=== PATIENT | female | born 1970 | race Caucasian/White ===

== ENCOUNTER → 2018-04-24 15:15 | Outpatient (CLI) | payer OTHER, SELFPAY ==
--- NOTE | 2018-04-24 15:24 | XR_ITS ---
XR chest 2V HISTORY: ITS.REASON: COUGH ORDERING PHYSICIAN: Trevor Barkley MD PATIENT AGE: 47 years COMPARISON: None FINDINGS: The cardiomediastinal silhouette and pulmonary vascularity are within normal limits. There is patchy density in the right upper lobe and in the right lower lobe consistent with right-sided pneumonia with minimal blunting of the right CP angle. The remaining lungs are clear.. No acute bony abnormalities. IMPRESSION: Right upper and right lower lobe pneumonia
== END ==
PROVIDERS: PCP Family Medicine; Visit Provider Family Medicine
DX: R05 Cough (principal)
CPT/HCPCS: 71046

== ENCOUNTER → 2018-05-08 10:47 | Outpatient (CLI) | payer OTHER, SELFPAY ==
--- NOTE | 2018-05-08 10:50 | XR_ITS ---
XR chest 2V HISTORY: Follow-up pneumonia ITS.REASON: PNEUMONIA ORDERING PHYSICIAN: Naomy Martin MD PATIENT AGE: 47 years COMPARISON: 04/24/2018 FINDINGS: The cardiomediastinal silhouette and pulmonary vascularity are within normal limits. Previously described infiltrate in the right lower lobe has shown improvement. There remains some blunting of the right costophrenic sulcus. There is some patchy density in the right upper lobe superior to the previously described abnormality and may represent some patchy infiltrate or pleural thickening. There is a new patchy density also noted in the left lower lobe which could be due to an area of infiltrate. No acute bony anomalies. IMPRESSION: There has been a mixed response with improvement in the right lower lobe airspace disease. There are areas of slight increased density now the right upper lobe and left lower lobe suggesting small bilateral areas of pneumonia. There is some minimal residual blunting of the right CP angle
== END ==
PROVIDERS: PCP Emergency Medicine; Visit Provider Emergency Medicine
DX: J18.1 Lobar pneumonia, unspecified organism (principal)
CPT/HCPCS: 71046

== ENCOUNTER → 2018-06-05 15:36 | Outpatient (CLI) | payer OTHER, SELFPAY ==
--- NOTE | 2018-06-05 15:42 | CT_ITS ---
CT chest wo con HISTORY: Pneumonia with persistent cough, abnormal chest x-ray ITS.REASON: ABNORMAL CXR ORDERING PHYSICIAN: Naomy Martin MD PATIENT AGE: 47 years COMPARISON: 05/08/2018 Technique: Axial images obtained following the administration of 75 mL of Optiray 350 . Sagittal, and coronal reformatted images are also generated and reviewed. All CT scans at the facility use one or more dose reduction, viz: automated exposure control, ma/kV adjustment per patient size (including targeted exams where dose is matched to indication, i.e. head), or iterative reconstruction technique. FINDINGS: No mediastinal or hilar mass or adenopathy is evident. There is slight increased density within the anterior mediastinum likely related to residual thymic tissue. There is mild subpleural thickening in the right apex and right upper lobe posteriorly. There is a peripherally opacified bronchus in the right upper lobe laterally series 3 image 32 along with some small nodular opacities in this region which may be inflammatory or infectious with tree-in-bud pattern. 4 mm noncalcified nodule right lower lobe in the superior segment posteriorly and 4 mm noncalcified nodule right upper lobe at the apex. There is mild thickening of the major fissure on the right superiorly and laterally. Patchy infiltrate with bronchial thickening is present in the right middle lobe medially and laterally. Bronchial thickening with bronchiectasis noted within the lingula. There is consolidation in the left lower lobe medially with some associated bronchial thickening and a few small scattered nodular opacities in the left lower lobe. A 4 mm noncalcified nodule left upper lobe and there are scattered small nodular opacities in the left lower lobe at 4 mm or lass. No effusions are evident. There is a small lucency involving the superior posterior aspect of the ascending vertebral body nonspecific. Upper abdominal images are unremarkable. IMPRESSION: 1. There are scattered areas of bronchial thickening with tree-in-bud pattern consistent with bilateral pneumonia. Bronchiectasis is present within the lingula. The consolidation is most extensive in the left lower lobe posteriorly and medially. Bronchial impaction/plugging suspected in the right upper lobe laterally and in the right middle lobe inferiorly and laterally. 2. There are small bilateral pulmonary nodules in both lungs which are 4 mm or less and may be inflammatory or infectious. Continued follow-up suggested to confirm resolution as neoplasm cannot totally be excluded
== END ==
PROVIDERS: PCP Emergency Medicine; Visit Provider Emergency Medicine
DX: R91.8 Other nonspecific abnormal finding of lung field (principal)
CPT/HCPCS: 71250

== ENCOUNTER → 2018-06-27 10:30 | Outpatient (CLI) | payer OTHER, SELFPAY ==
--- NOTE | 2018-06-27 10:34 | MM_ITS ---
MM Dig screening mamm BI w/CAD CAD Screening COMPARISON: None, this is baseline INDICATION: There is no personal or family history of breast cancer TECHNIQUE: Standard CC and MLO images were obtained. R2 CAD reviewed. FINDINGS: There Is a markedly and diffusely dense parenchymal pattern definitely lessening the sensitivity of mammography. The findings are bilateral and symmetrical. There is no suspicious lesion and there are no suspicious microcalcifications. In view of the markedly dense parenchymal pattern strongly recommend monthly breast self-examination and if there are palpable lumps ultrasound surveillance of both breast should be considered. IMPRESSION: Markedly and diffusely dense parenchyma pattern with no definite suspicious lesion seen BI-RADS Category: 1 Negative RECOMMENDED FOLLOW-UP: 1YR - 1 YEAR FOLLOW-UP (A letter has been sent to the patient regarding results of the study.)
== END ==
PROVIDERS: PCP Emergency Medicine; Visit Provider Emergency Medicine
DX: Z12.31 Encounter for screening mammogram for malignant neoplasm of breast (principal)
CPT/HCPCS: 77067

== ENCOUNTER → 2018-12-19 10:37 | Outpatient (CLI) | payer OTHER, SELFPAY ==
--- NOTE | 2018-12-19 10:40 | CT_ITS ---
PROCEDURE: CT CHEST WO CON CLINICAL INDICATION: ABNORMAL CT SCAN, LUNG COMPARISON: CHESTWO CT chest wo con from 06/05/2018 TECHNIQUE: Axial images obtained with sagittal and coronal reformats. All CT scans at the facility use one or more dose reduction, viz: automated exposure control, ma/kV adjustment per patient size (including targeted exams where dose is matched to indication, i.e. head), or iterative reconstruction technique. FINDINGS: Airway structures are patent without pleural effusion or pneumothorax. The There has been some clearing of the opacities in the medial left lower lobe. There are still small nodular densities which are stable in the lung larry as described on the prior report although 1 of the nodular densities with hazy margins in the left lower lobe is smaller. There are some persistent tree-in-bud peripheral densities in the base of the anterior segment of the right upper lobe and lateral right upper lobe associated with stable bronchiectasis. There is also some greater prominence of the bronchial wall in the area of bronchiectasis along the base of the anterior segment right upper lobe. There is no new abnormal adenopathy. Heart size is normal without pericardial effusion. Visualized upper abdominal structures are unremarkable. IMPRESSION: There has been some interval improvement with clearing of consolidation/atelectasis from the left lower lobe. Bronchiectasis is still present and stable except there could be some increased peribronchial infiltrate or bronchial wall thickening involving the anterior segment right upper lobe. Also the tree-in-bud densities in the lateral right upper lobe and the anterior segment right upper lobe are stable. This persistence of the findings could occur with recurrence aspiration or perhaps opportunistic infection. Dictated by: Brenton Bailon 12/19/2018 11:50 Electronically signed by Brenton Bailon in [place] 12/19/2018 11:50
== END ==
PROVIDERS: PCP Emergency Medicine; Visit Provider Emergency Medicine
DX: R91.8 Other nonspecific abnormal finding of lung field (principal)
CPT/HCPCS: 71250

== ENCOUNTER → 2019-01-19 10:27 | Outpatient (CLI) | payer OTHER, SELFPAY ==
[2019-01-19 11:10] VITALS: PULSE 83; PULSE 88
[2019-01-19 12:52] LABS: Basophils # 0.1 K/mm3 (0-0.2); Basophils % 0.9 % (0.1-2.0); Eosinophils # 0.1 K/mm3 (0.0-0.4); Hematocrit 40.7 % (37.0-47.0); Hemoglobin 12.6 g/dL (12.2-16.2); Lymphocytes # 1.4 K/mm3 (0.7-4.5); Lymphocytes % 27.5 % (10-50); Mean Corpuscular HGB Conc 31.1 g/dL (31.8-35.4); Mean Corpuscular Hemoglobin 28.2 pg (27.0-31.2); Mean Corpuscular Volume 90.7 fl (81-99); Mean Platelet Volume 7.3 fl (7.4-10.4); Monocytes # 0.2 K/mm3 (0.1-1.0); Neutrophils # 3.4 K/mm3 (1.8-7.8); Neutrophils % 66.6 % (37.0-80.0); Platelet Count 371 K/mm3 (142-424); Red Blood Count 4.49 M/mm3 (4.20-5.40); Red Cell Distribution Width 13.2 % (11.5-17.5); White Blood Count 5.2 K/mm3 (4.8-10.8)
[2019-01-19 15:10] LABS: Alanine Aminotransferase 17 U/L (12-78); Albumin Level 3.6 gm/dL (3.4-5.0); Albumin/Globulin Ratio 0.9 (1.1-1.8); Alkaline Phosphatase 75 U/L (46-116); Aspartate Amino Transferase 12 U/L (15-37); Blood Urea Nitrogen 15 mg/dL (7-18); C-Reactive Protein 0.3 mg/dL (0.0-0.9); Calcium 9.2 mg/dL (8.5-10.1); Carbon Dioxide 28 mmol/L (21.0-32.0); Chloride 101 mmol/L (98-107); Creatinine,Serum 0.74 mg/dL (0.55-1.02); Estimated Glomerular Filt Rate 84 ml/min (>60); GFR (African American) 102 ML/MIN (>60); Globulin 4.2 gm/dl (1.3-3.2); Glucose 93 mg/dL (74-106); Sodium 139 mmol/L (136-145); Total Protein,Serum 7.8 gm/dL (6.4-8.2)
[2019-01-20 11:29] LABS: Immunoglobulin A, Qn 245 mg/dL (87-352); RA Latex Turbid. 10.2 IU/mL (0.0-13.9)
[2019-01-20 16:10] LABS: IgG, Subclass 1 938 mg/dL (248-810); IgG, Subclass 2 639 mg/dL (130-555); IgG, Subclass 3 96 mg/dL (15-102); Immunoglobulin G, Qn 1809 mg/dL (700-1600)
[2019-01-21 08:04] LABS: IgG, Subclass 4 41 mg/dL (2-96); Immunoglobulin M, Qn 259 mg/dL (26-217)
[2019-01-21 08:14] LABS: Cytoplasmic (C-ANCA) <1:20 titer (Neg:<1:20)
[2019-01-22 11:05] LABS: Antinuclear Antibodies, IFA Positive (.); Perinuclear (P-ANCA) <1:20 titer (Neg:<1:20)
[2019-01-22 12:03] LABS: QuantiFERON-TB Gold Plus Negative (Negative)
== END ==
PROVIDERS: PCP Emergency Medicine; Visit Provider Internal Medicine
DX: R06.02 Shortness of breath (principal); J18.9 Pneumonia, unspecified organism; J47.9 Bronchiectasis, uncomplicated; H10.409 Unspecified chronic conjunctivitis, unspecified eye
CPT/HCPCS: 36415; 80053; 82784; 82787; 85025; 86038; 86140; 86256; 86431; 86480; 94060; 94618; 94640; 94726; 94729

== ENCOUNTER → 2019-02-03 11:42 | Outpatient (CLI) | payer OTHER, SELFPAY ==
[2019-02-04 13:14] LABS: Sjogren's Anti-SS-A <0.2 AI (0.0-0.9); Sjogren's Anti-SS-B <0.2 AI (0.0-0.9)
[2019-02-05 06:11] LABS: Antiscleroderma-70 Antibodies <0.2 AI (0.0-0.9)
== END ==
PROVIDERS: Visit Provider Internal Medicine
DX: R76.8 Other specified abnormal immunological findings in serum (principal)
CPT/HCPCS: 36415; 86235

== ENCOUNTER → 2019-04-01 09:21 | Outpatient (CLI) | payer OTHER, SELFPAY ==
--- NOTE | 2019-04-01 09:27 | XR_ITS ---
PROCEDURE: XR CHEST 2V CLINICAL HISTORY: BRONCHIECTASIS, MRSA PNEUMONIA COMPARISON: CXR2V XR chest 2V from 04/24/2018 CXR2V XR chest 2V from 05/08/2018 CT CHEST WO CON from 12/19/2018 XR CHEST 2V from 01/21/2019 FINDINGS: The cardiomediastinal silhouette and pulmonary vascularity are within normal limits. There is some hyperinflation. The previously noted pneumonia in the superior segment of the right lower lobe has improved. There is however persistent opacity within the lingula and may be related to persistent pneumonia and/or volume loss. This however has a somewhat nodular appearance on the PA view. Suggest following till clear. CT with contrast may be of further value if clinically desired. No acute bony abnormalities. IMPRESSION: 1. Improved right sided pneumonia. 2. Persistent lingular consolidation. Suggest following till clear Dictated by: John De Jesus MD 04/01/2019 09:49 Electronically signed by John De Jesus MD in [facility] 04/01/2019 09:49
== END ==
PROVIDERS: PCP Family Medicine; Visit Provider Internal Medicine
DX: J47.9 Bronchiectasis, uncomplicated (principal); J15.212 Pneumonia due to Methicillin resistant Staphylococcus aureus; R09.81 Nasal congestion
CPT/HCPCS: 71046

== ENCOUNTER → 2019-04-11 16:14 | Outpatient (CLI) | payer OTHER, SELFPAY | PROVIDERS: Visit Provider Internal Medicine | DX: J47.9 Bronchiectasis, uncomplicated (principal); J18.9 Pneumonia, unspecified organism; H10.409 Unspecified chronic conjunctivitis, unspecified eye | CPT/HCPCS: 87070; 87077; 87102; 87116; 87186; 87205; 87206 ==

== ENCOUNTER 2020-04-08 15:12 | Emergency (ER) | payer OTHER, SELFPAY ==
[2020-04-08 15:20] VITALS: BP 137/74; PULSE 66; RESP 20; TEMP 37.1; O2SAT 100
--- NOTE | 2020-04-08 15:38 | HMH.EDUTC ---
[facility] [place] Clinical Impression: Post-nasal drainage Disposition: Home, Self-Care Condition on Discharge: Good Instructions: Preventing the Spread of Coronavirus Discharge Instructions Prescriptions: predniSONE [Prednisone 20mg Tab] 20 mg PO BID 5 Days #10 tab Transmission Status: [id number] Montelukast Sodium [Singulair 10mg tablet] 10 mg PO PM #30 tab Transmission Status: [id number] Referrals: Trevor Barkley MD [Primary Care Provider] - Time of Disposition: 15:46 Medical Decision Making - Rodriguez Inquiry Pt receiving controlled substance: No - Lab Data Lab results reviewed: Yes: I reviewed the patient's lab results. [facility] [place] - General Stated complaint: sore throat Time Seen by Provider: 04/08/20 15:38 - History of Present Illness Provider Complaint: Sore throat, sinus congestion X 2 days. No fever. Mother has strep throat. No known exposure to COVID19. No vomiting or diarrhea. Onset (ago): day(s) (2) Relieving factors: none Exacerbating factors: none Treatments prior to arrival: none - Related Data Home Medications Medication Instructions Recorded Confirmed amitriptyline 25 mg tablet 25 mg PO DAILY PRN 04/01/19 04/23/19 Previous Rx's Medication Instructions Recorded Albuterol Sulfate [Albuterol HFA 1 - 2 puffs IH Q4-6H PRN #1 inh 03/17/19 Inhaler] predniSONE [Deltasone 10mg tablet] 10 mg PO BID 4 Days #8 tab 03/17/19 Doxycycline Monohydrate 100 mg PO Q12 7 Days #14 tab 04/16/19 [Doxycycline [place] 100mg Tab] predniSONE [Prednisone 5mg Tab 5 mg PO UD DOSE PK 5 Days #21 pack 04/16/19 Dose-Pack] Montelukast Sodium [Singulair 10mg 10 mg PO PM #30 tab 04/08/20 tablet] predniSONE [Prednisone 20mg 20 mg PO BID 5 Days #10 tab 04/08/20 Tab] Allergies Allergy/AdvReac Type Severity Reaction Status Date / Time amoxicillin Allergy Verified 04/23/19 13:12 cephalexin [From Keflex] Allergy Verified 04/23/19 13:12 ciprofloxacin Allergy Verified 04/23/19 13:12 erythromycin base Allergy Verified 04/23/19 13:12 sulfamethoxazole Allergy Verified 04/23/19 13:12 [From Bactrim] trimethoprim Allergy Verified 04/23/19 13:12 [facility] History - Hepatitis A Screen Attestation statement:: This patient has been screened for Hepatitis A risk factors. I have reviewed the patient's past medical history: Yes Medical History: Reports:: Anxiety, Depression Denies:: Cancer, Diabetes Mellitus Type 1, Diabetes Mellitus Type 2, MRSA Other Medical History: Reports: Hypothyroidism, Other Comment: Hypoglycemic. Hx of Rowley's palsey. Repeated Pneumonias Laterality Cases: Bilateral: Other Other Surgeries: Yes: Cholecystectomy, Other Amputation: No Fractures: No Comment: GALLBLADDER, 2009. BRONCHOSCOPY---01/03 @ - Social History Smoking Status: Never smoker Alcohol Intake: never Alcohol Intake Frequency:: holidays/special occasions only Substance Use Type: denies use Occupational Status: unemployed, other Housing: house Household Members: family - Psychiatric History Pschychiatric History:: Reports:: Anxiety, Depression Family Hx:: Cancer, Hypertension, Diabetes, Stroke Comment: lung cancer, throat cancer in grandmother's Comment: patient delivered at [facility] on 03/12/17, male. 7lbs 0oz, some tearing during , had stitches ROS Obtained: Yes All systems reviewed & no additional complaints - Constitutional Constitutional: Denies fever(s) - ENT Ears, Nose, Mouth, and Throat: Reports post nasal drip, Reports sore throat Physical Exam - General General appearance: alert, in no apparent distress - Head Head exam: normocephalic - Eye Eye exam: Present: PERRL - ENT ENT exam: Present: TM's normal bilaterally - Expanded ENT Exam Throat exam: Present: other (PND) - Respiratory Respiratory exam: Present: normal lung sounds bilaterally - Cardiovascular Cardiovascular exam: Present: re
[2020-04-08 15:58] VITALS: BP 137/74; PULSE 66; RESP 20; TEMP 37.1; O2SAT 100
[2020-04-08 15:59] LABS: UTC Strep Screen (Rapid) Negative (Negative)
--- NOTE | 2020-04-08 20:44 | PC.NURSE ---
PATIENT NOTIFIED OF POSITIVE COVID TEST AT THIS TIME
== END 2020-04-08 16:00 | disposition home or self-care (01) ==
PROVIDERS: Emergency Provider Physician Assistant; PCP Family Medicine
DX: U07.1 COVID-19 (principal); F41.8 Other specified anxiety disorders; E03.9 Hypothyroidism, unspecified; Z88.1 Allergy status to other antibiotic agents; Z88.2 Allergy status to sulfonamides; Z79.899 Other long term (current) drug therapy
CPT/HCPCS: 87880; 99202; G0463; U0003

== ENCOUNTER → 2020-05-16 17:04 | Outpatient (CLI) | payer OTHER, SELFPAY ==
[2020-05-16 18:07] LABS: Uric Acid 3.2 mg/dl (2.5-6.2)
[2020-05-16 18:09] LABS: Erythrocyte Sedimentation Rate 9 mm/hr (0-20)
[2020-05-16 18:14] LABS: C-Reactive Protein 0.5 mg/L (0-4)
[2020-05-18 11:16] LABS: Immunoglobulin A, Qn 199 mg/dL (87-352); RA Latex Turbid. <10.0 IU/mL (0.0-13.9)
[2020-05-18 14:58] LABS: Alpha-1-Antitrypsin 143 mg/dL (101-187)
[2020-05-18 15:10] LABS: Sjogren's Anti-SS-A <0.2 AI (0.0-0.9); Sjogren's Anti-SS-B <0.2 AI (0.0-0.9)
[2020-05-18 16:55] LABS: Cytoplasmic (C-ANCA) <1:20 titer (Neg:<1:20); IgG, Subclass 1 786 mg/dL (248-810); IgG, Subclass 2 502 mg/dL (130-555); IgG, Subclass 3 77 mg/dL (15-102); IgG, Subclass 4 41 mg/dL (2-96); Immunoglobulin G, Qn 1581 mg/dL (586-1602)
[2020-05-18 18:16] LABS: Anti-DNA (DS) Ab Qn <1 IU/mL (0-9); Perinuclear (P-ANCA) <1:20 titer (Neg:<1:20)
[2020-05-19 15:16] LABS: Antinuclear Antibodies, IFA Negative (.)
[2020-05-20 05:28] LABS: Anti-Cyclic Citrullinated Pept 9 units (0-19)
[2020-05-21 19:21] LABS: Immunoglobulin E, Total 12 IU/mL (6-495)
[2020-05-21 21:18] LABS: M003-IgE Aspergillus fumigatus <0.10 kU/L (Class 0)
[2020-05-21 22:29] LABS: Antinuclear Antibodies (ANA) NEGATIVE
== END ==
PROVIDERS: Visit Provider Internal Medicine Pulmonary Disease
DX: R06.00 Dyspnea, unspecified (principal); J84.9 Interstitial pulmonary disease, unspecified; J41.1 Mucopurulent chronic bronchitis; R06.2 Wheezing; J98.4 Other disorders of lung; J44.9 Chronic obstructive pulmonary disease, unspecified
CPT/HCPCS: 36415; 82103; 82784; 82785; 82787; 84550; 85651; 86003; 86038; 86140; 86200; 86225; 86235; 86256; 86431; 87070; 87077; 87116; 87186; 87205; 87206

== ENCOUNTER 2020-07-01 11:53 | Emergency (ER) | payer OTHER, SELFPAY ==
[2020-07-01 12:05] VITALS: BP 122/68; PULSE 79; RESP 20; TEMP 37.2; O2SAT 100; BMI 19.2
--- NOTE | 2020-07-01 12:20 | HMH.EDUTC ---
[facility] – [place] Disposition Clinical Impression: Sinusitis Qualifiers: Sinusitis location: unspecified location Chronicity: unspecified Qualified Code(s): J32.9 - Chronic sinusitis, unspecified Disposition: Home, Self-Care Condition on Discharge: Good Instructions: Sinusitis, DI for Sinusitis Additional Instructions: ? Start antibiotic today. Be sure to complete entire prescription even if feeling better ? Monitor temp. Tylenol every 4 hours as needed and / or ibuprofen every 6 hours as needed ( As long as your primary care physician has told you that it ok to take both. For fever/aches/pains ER if no less than 101 despite Tylenol or Motrin ? Humidifier/vaporizer or hot steamy shower ? Inhaler every 4-6 hours as needed like we discussed. If unsure how to use it, ask pharmacist to demonstrate how. Should help open airways and improve cough, wheezing, and shortness of breath ? Mucinex during the day for your cough and cough suppressant only at night. Be sure to drink lots of water. Insurance may not cover a prescriptions for mucinex. Might be cheaper to get 400mg tablets and take 2 tablet in the morning, mid-day and evening with lots of water. *Start steroid today. Helps with inflammation therefore, cough and wheezing. Follow directions on the package. Reviewed side effects. Patient reports taking them before. Follow up IMMEDIATELY for new or worsening of symptoms OR no noticeable improvement over the next 48-72 hours. 911 immediately for any life threatening symptoms such as chest pain or difficulty breathing Prescriptions: Doxycycline Monohydrate [Doxycycline [place] 100mg Tab] 100 mg PO Q12 7 Days #14 tab Transmission Status: [id number] predniSONE [Prednisone 20mg Tab] 20 mg PO BID 5 Days #10 tab Transmission Status: [id number] Montelukast Sodium [Singulair 10mg tablet] 10 mg PO PM #30 tab Transmission Status: [id number] Referrals: Trevor Barkley MD [Primary Care Provider] - As needed Time of Disposition: 12:26 Medical Decision Making - Rodriguez Inquiry Pt receiving controlled substance: No Rodriguez was queried for this patient: No Vital Signs: 07/01/20 12:05 07/01/20 12:26 Temperature 98.9 F 98.9 F Temperature Source Oral Pulse Rate 79 Pulse Rate [Right Brachial] 79 Respiratory Rate 20 20 Blood Pressure 122/68 Blood Pressure [Right Arm] 122/68 Blood Pressure Mean [Right Arm] 86 Blood Pressure Source [Right Arm] Automatic Cuff Blood Pressure Position [Right Arm] Sitting 02 Sat by Pulse Oximetry 100 Oxygen Delivery Method Room Air [facility] [place] HPI - General Stated complaint: sinus drainage, congestion Time Seen by Provider: 07/01/20 12:20 Mode of Arrival: Ambulatory Source of Information: Patient Limitations: No Limitations Description of Symptoms (Recalled from Triage Doc. by RN): PATIENT C/O COUGH, SINUS CONGESTION, AND ALLERGIES X 1 WEEK HEENT Symptoms (Recalled from RN notes): Yes Resp Symptoms (Recalled from RN notes): No Skin Symptoms (Recalled from RN notes): No MS Symptoms (Recalled from RN notes): No Functional Status (Recalled from RN notes): WNL - History of Present Illness Provider Complaint: Patient states that she thought she was having allergy problems for the last couple of weeks but for the last week she has continued to get worse States that she has had a cough, sinus congestion and pressure and feels like it is trying to move into her chest State that today she was feeling worse so she came in to get checked - Related Data Home Medications Medication Instructions Recorded Confirmed Albuterol Sulfate [Albuterol 8.5 gm IH DAILY 07/01/20 07/01/20 Sulfate Hfa] Loratadine [Claritin 10mg 10 mg PO DAILY 07/01/20 07/01/20 Tablet] Previous Rx's Medication Instructions Recorded Doxycycline Monohydrate 100 mg PO Q12 7 Days #14 tab 07/01/20 [Doxycycline [place] 100mg Tab] Montelukast Sodium [Singulair 10mg 10
[2020-07-01 12:26] VITALS: BP 122/68; PULSE 79; RESP 20; TEMP 37.2; O2SAT 100
== END 2020-07-01 12:31 | disposition home or self-care (01) ==
PROVIDERS: Emergency Provider Nurse Practitioner; PCP Family Medicine
DX: J32.9 Chronic sinusitis, unspecified (principal); F41.8 Other specified anxiety disorders
CPT/HCPCS: 99202; G0463

== ENCOUNTER 2021-05-25 10:31 | Emergency (ER) | payer OTHER, SELFPAY ==
[2021-05-25 11:10] VITALS: BP 130/78; PULSE 89; RESP 19; TEMP 36.9; O2SAT 98; BMI 21.6
--- NOTE | 2021-05-25 12:02 | HMH.EDUTC ---
[facility] [place] Disposition Clinical Impression: Sinusitis Qualifiers: Sinusitis location: unspecified location Chronicity: unspecified Qualified Code(s): J32.9 - Chronic sinusitis, unspecified Acute bronchitis Qualifiers: Bronchitis organism: unspecified organism Qualified Code(s): J20.9 - Acute bronchitis, unspecified Disposition: Home, Self-Care Condition on Discharge: Good Instructions: Sinusitis, DI for Sinusitis, Acute Bronchitis Additional Instructions: ? Start antibiotic today. Be sure to complete entire prescription even if feeling better ? Monitor temp. Tylenol every 4 hours as needed and / or ibuprofen every 6 hours as needed ( As long as your primary care physician has told you that it ok to take both. For fever/aches/pains ER if no less than 101 despite Tylenol or Motrin ? Humidifier/vaporizer or hot steamy shower *Tessalon Perles will not cause drowsiness but use at bedtime to help stop cough so that you may get some rest. *Start steroid today. Helps with inflammation therefore, cough and wheezing. Follow directions on the package. Reviewed side effects. Patient reports taking them before. Follow up IMMEDIATELY for new or worsening of symptoms OR no noticeable improvement over the next 48-72 hours. 911 immediately for any life threatening symptoms such as chest pain or difficulty breathing Prescriptions: Benzonatate [Benzonatate 100mg cap] 100 mg PO Q8HP PRN #15 cap PRN Reason: Cough Transmission Status: [id number] Doxycycline Monohydrate [Doxycycline [place] 100mg Tab] 100 mg PO Q12 7 Days #14 tab Transmission Status: [id number] predniSONE [Prednisone 20mg Tab] 20 mg PO BID 5 Days #10 tab Transmission Status: [id number] Referrals: Trevor Barkley MD [Primary Care Provider] - As needed Time of Disposition: 12:11 Medical Decision Making - Rodriguez Inquiry Pt receiving controlled substance: No Rodriguez was queried for this patient: No Vital Signs: 05/25/21 11:10 Temperature 98.4 F Temperature Source Oral Pulse Rate [Right Brachial] 89 Respiratory Rate 19 Blood Pressure [Right Arm] 130/78 Blood Pressure Mean [Right Arm] 95 Blood Pressure Source [Right Arm] Automatic Cuff Blood Pressure Position [Right Arm] Sitting 02 Sat by Pulse Oximetry 98 Oxygen Delivery Method Room Air Orders (Tests/Meds): ORDERS Category Date Time Status Covid-19 Nasal PCR ([facility]) Routine Lab 05/25/21 11:26 Received [facility] [place] HPI - General Stated complaint: congestion,runny nose,cough Time Seen by Provider: 05/25/21 12:02 Mode of Arrival: Ambulatory Source of Information: Patient Limitations: No Limitations Description of Symptoms (Recalled from Triage Doc. by RN): PATIENT C/O COUGH AND CONGESTION. HEENT Symptoms (Recalled from RN notes): Yes Resp Symptoms (Recalled from RN notes): Yes Skin Symptoms (Recalled from RN notes): No MS Symptoms (Recalled from RN notes): No Functional Status (Recalled from RN notes): WNL - History of Present Illness Provider Complaint: Patient states that she has been having sinus pain and pressure along with cough and feeling like it is trying to move into her chest States that she gets this about this time every year States that she also wanted to get tested for COVID - Related Data Home Medications Medication Instructions Recorded Confirmed Loratadine [Claritin 10mg 10 mg PO DAILY 07/01/20 02/03/21 Tablet] Previous Rx's Medication Instructions Recorded Montelukast Sodium [Singulair 10mg 10 mg PO PM #30 tab 07/01/20 tablet] azelastine 205.5 mcg (0.15 %) 2 spray INTRANASAL HS #30 ml 08/05/20 nasal spray fluticasone propionate 50 1 spray INTRANASAL DAILY #16 g 08/05/20 mcg/actuation nasal spray,suspension levalbuterol HCl 0.63 mg/3 mL 0.63 mg INHALATION BID #90 ml 02/03/21 solution for nebulization sodium chloride 3.5 % for 3 ml INHALATION DAILY 90 Days #270 03/13/21 nebulization ml MDD
[2021-05-25 12:21] VITALS: BP 130/78; PULSE 89; RESP 19; TEMP 36.9; O2SAT 98
== END 2021-05-25 12:22 | disposition home or self-care (01) ==
PROVIDERS: Emergency Provider Nurse Practitioner; PCP Family Medicine
DX: J02.9 Acute pharyngitis, unspecified (principal); J32.9 Chronic sinusitis, unspecified; E03.9 Hypothyroidism, unspecified; F32.A Depression, unspecified; F41.9 Anxiety disorder, unspecified; Z79.51 Long term (current) use of inhaled steroids; Z79.52 Long term (current) use of systemic steroids; Z79.899 Other long term (current) drug therapy; Z88.1 Allergy status to other antibiotic agents; Z88.3 Allergy status to other anti-infective agents; Z88.2 Allergy status to sulfonamides; Z88.8 Allergy status to other drugs, medicaments and biological substances; Z82.49 Family history of ischemic heart disease and other diseases of the circulatory system; Z83.3 Family history of diabetes mellitus; Z80.1 Family history of malignant neoplasm of trachea, bronchus and lung; Z80.8 Family history of malignant neoplasm of other organs or systems
CPT/HCPCS: 99212; 99283; C9803; G0463; U0003; U0005

== ENCOUNTER 2022-05-29 18:45 | Emergency (ER) | payer OTHER, SELFPAY ==
[2022-05-29 19:20] VITALS: BP 117/71; PULSE 88; RESP 20; TEMP 37.5; O2SAT 97
[2022-05-29 19:34] LABS: UTC Strep Screen (Rapid) Negative (Negative)
--- NOTE | 2022-05-29 19:47 | EXP.UTC ---
Discharge Plan Disposition Patient Disposition: Home, Self-Care Condition: Good Prescriptions Prescriptions: No Action azelastine 205.5 mcg (0.15 %) spray,non-aerosol 2 spray INTRANASAL HS Qty: 30 3RF Rx Instructions: administer into each nostril fluticasone propionate [Children's Flonase Allergy Rlf] 50 mcg/actuation spray,suspension 1 spray INTRANASAL DAILY Qty: 16 3RF Rx Instructions: administer into each nostril levalbuterol HCl 0.63 mg/3 mL solution for nebulization 0.63 mg INHALATION BID Qty: 90 6RF Hyper-Shabbir 3.5 % solution for nebulization 3 ml INHALATION DAILY MDD 3 ml 90 Days Qty: 270 3RF Rx Instructions: 3 mL of 3% hypertonic saline nebulization once every day. This nebulization should be preceded by albuterol nebulization to avoid any bronchospasm. Paxlovid (EUA) 150 mg x 2- 100 mg tablet See Rx Instructions PO .COMPLEX Qty: 6 0RF Rx Instructions: take TWO 150 mg tablets of nirmatrelvir with ONE 100 mg tablet of ritonavir twice daily for 5 days PO loratadine 10 MG tablet 10 mg PO DAILY montelukast 10 MG tablet 10 mg PO PM Qty: 30 0RF prednisone 20 MG tablet 20 mg PO BID 5 Days Qty: 10 0RF doxycycline monohydrate 100 MG tablet 100 mg PO Q12 7 Days Qty: 14 0RF benzonatate 100 MG capsule 100 mg PO Q8HP PRN (Reason: Cough) Qty: 15 0RF Referrals Follow up/Referrals: Trevor Barkley MD [Primary Care Provider] - See instructions Activity Restrictions/Add. Instructions Additional Instructions/Restrictions: *Monitor Temp, Over the counter Motrin or Tylenol as directed/as needed Tylenol every 4 hours and Motrin every 6 hours (as long as your family doctor has told you that you can take it) for fever or pain. and straight to ER if unable to lower temp less than 101.0 after medication given *Warm salt water gargles may help to soothe the throat *Throat Lozenges? *Warm fluids like tea with honey may help to soothe the throat? *Sleep elevated *Humidifier/Vaporizer Your throat swab was sent for culture. Those results are typically sent to your primary care. Be sure to follow up in 2-3 days with your family doctor/primary care physician if no improvement so they can review those result and treat if necessary. If you don?t have a primary care doctor, I recommend you get one but in the mean time, you will have to return to a walk in clinic Follow up IMMEDIATELY for new or worsening symptoms or no Noticeable improvement over the next 48-72 hours. 911 for difficulty breathing or swallowing Clinical Impressions Clinical Impression: Acute viral pharyngitis Instructions Patient Instructions: Viral Pharyngitis, DI for Viral Pharyngitis Discharge ED Provider: Kerline Thomas [facility] [place] HPI General Stated complaint: Sore throat Congestion Runny nose Mode of Arrival: Ambulatory Source of Information: Patient Limitations: No Limitations Time Seen by Provider: 05/29/22 19:47 Description of Symptoms (Recalled from Triage Doc. by RN): PATIENT C/O SORE THROAT, CONGESTION, AND RUNNY NOSE SINCE LAST NIGHT HEENT Symptoms (Recalled from RN notes): Yes Resp Symptoms (Recalled from RN notes): No Skin Symptoms (Recalled from RN notes): No MS Symptoms (Recalled from RN notes): No Functional Status (Recalled from RN notes): WNL History of Present Illness Provider Complaint: Patient states that she started last night with nasal congestion, runny nose and sore throat States that today her throat was still hurting and she wasnt feeling any better so she came in to get checked Related Data Home Medications Medication Instructions Recorded Confirmed loratadine 10 mg tablet 10 mg PO DAILY Allergy symptoms 07/01/20 02/03/21 Previous Rx's Medication Instructions Recorded montelukast 10 mg tablet 10 mg PO PM #30 tabs 07/01/20 azelastine 205.5 mcg (0.15 %) 2 spray intranasal HS #30 mL 08/05/20 nasal spray fluticasone propionate
[2022-05-29 19:55] VITALS: BP 117/71; PULSE 88; RESP 20; TEMP 37.5; O2SAT 97
== END 2022-05-29 19:56 | disposition home or self-care (01) ==
PROVIDERS: Emergency Provider Nurse Practitioner; PCP Family Medicine
DX: J02.9 Acute pharyngitis, unspecified (principal); R09.81 Nasal congestion; B34.9 Viral infection, unspecified
CPT/HCPCS: 87880; 99212; 99214; G0463

== ENCOUNTER → 2022-06-22 14:27 | Outpatient (POV) | payer OTHER, SELFPAY | PROVIDERS: Visit Provider Dermatology | DX: Z00.00 Encounter for general adult medical examination without abnormal findings (principal) ==

== ENCOUNTER → 2022-07-24 10:05 | Outpatient (POV) | payer OTHER, SELFPAY | PROVIDERS: Visit Provider Dermatology | DX: Z00.00 Encounter for general adult medical examination without abnormal findings (principal) ==

== ENCOUNTER 2022-12-04 17:46 | Emergency (ER) | payer OTHER, SELFPAY ==
--- NOTE | 2022-12-04 18:23 | EXP.UTC ---
Discharge Plan Disposition Patient Disposition: Home, Self-Care Condition: Good Prescriptions Prescriptions: New doxycycline monohydrate [doxycycline monohydrate] 100 mg tablet 100 mg PO Q12 10 Days Qty: 20 0RF benzonatate [benzonatate] 100 mg capsule 100 mg PO TIDP PRN (Reason: Cough) Qty: 30 0RF methylprednisolone 4 mg Tablets,Dose Pack 4 mg PO DIRECTED Qty: 21 0RF No Action azelastine 205.5 mcg (0.15 %) spray,non-aerosol 2 spray INTRANASAL HS Qty: 30 3RF Rx Instructions: administer into each nostril fluticasone propionate [Children's Flonase Allergy Rlf] 50 mcg/actuation spray,suspension 1 spray INTRANASAL DAILY Qty: 16 3RF Rx Instructions: administer into each nostril levalbuterol HCl 0.63 mg/3 mL solution for nebulization 0.63 mg INHALATION BID Qty: 90 6RF Hyper-Shabbir 3.5 % solution for nebulization 3 ml INHALATION DAILY MDD 3 ml 90 Days Qty: 270 3RF Rx Instructions: 3 mL of 3% hypertonic saline nebulization once every day. This nebulization should be preceded by albuterol nebulization to avoid any bronchospasm. Paxlovid 150 mg x 2- 100 mg tablet See Rx Instructions PO .COMPLEX Qty: 6 0RF Rx Instructions: take TWO 150 mg tablets of nirmatrelvir with ONE 100 mg tablet of ritonavir twice daily for 5 days PO loratadine 10 MG tablet 10 mg PO DAILY montelukast 10 MG tablet 10 mg PO PM Qty: 30 0RF prednisone 20 MG tablet 20 mg PO BID 5 Days Qty: 10 0RF doxycycline monohydrate 100 MG tablet 100 mg PO Q12 7 Days Qty: 14 0RF benzonatate 100 MG capsule 100 mg PO Q8HP PRN (Reason: Cough) Qty: 15 0RF Referrals Follow up/Referrals: Trevor Barkley MD [Primary Care Provider] - See instructions Clinical Impressions Clinical Impression: Sinusitis, Acute viral syndrome Stand Alone Forms Stand Alone Forms: Work/School Release Instructions Patient Instructions: Sinusitis, DI for Sinusitis, DI for Viral Syndrome, Coronavirus Disease 2019, Preventing the Spread of Coronavirus Discharge Instructions Discharge ED Provider: Neymar Chong [facility] General Stated complaint: SUMNER, fever Time Seen by Provider: 12/04/22 18:22 History of Present Illness Provider Complaint: She states that for the past 3 days she has had worsening sinus congestion, sore throat and she has felt bad. Related Data Home Medications Medication Instructions Recorded Confirmed loratadine 10 mg tablet 10 mg PO DAILY Allergy symptoms 07/01/20 02/03/21 Previous Rx's Medication Instructions Recorded montelukast 10 mg tablet 10 mg PO PM #30 tabs 07/01/20 azelastine 205.5 mcg (0.15 %) 2 spray intranasal HS #30 mL 08/05/20 nasal spray fluticasone propionate 50 1 spray intranasal DAILY #16 grams 08/05/20 mcg/actuation nasal spray,suspension (Children's Flonase Allergy Relief) levalbuterol HCl 0.63 mg/3 mL 0.63 mg (3 mL) inhalation BID #90 02/03/21 solution for nebulization mL sodium chloride 3.5 % for 3 ml inhalation DAILY 90 days #270 03/13/21 nebulization (Hyper-Shabbir) mL benzonatate 100 mg capsule 100 mg PO Q8HP PRN Cough #15 caps 05/25/21 doxycycline monohydrate 100 mg 100 mg PO Q12 7 days #14 tabs 05/25/21 tablet prednisone 20 mg tablet 20 mg PO BID 5 days #10 tabs 05/25/21 nirmatrelvir 300 mg (150 mg See Rx Instructions PO .COMPLEX #6 07/27/21 x2)-ritonavir 100 mg tablet,dose tabs pack (Paxlovid) benzonatate 100 mg capsule 100 mg PO TIDP PRN Cough #30 caps 12/04/22 doxycycline monohydrate 100 mg 100 mg PO Q12 10 days #20 tabs 12/04/22 tablet methylprednisolone 4 mg tablets in 4 mg PO DIRECTED #21 tabs 12/04/22 a dose pack Allergies Allergy/AdvReac Type Severity Reaction Status Date / Time amoxicillin Allergy Verified 02/03/21 10:03 cephalexin [From Keflex] Allergy Verified 02/03/21 10:03 ciprofloxacin Allergy Verified 02/03/21 10:03 erythromycin base Allergy Verified 02/03/21 10:03 Sulfa (Sulfonamide Allergy
[2022-12-04 18:30] VITALS: BP 112/60; PULSE 84; RESP 18; TEMP 37.1; O2SAT 100
[2022-12-04 18:48] VITALS: BP 112/60; PULSE 84; RESP 16; TEMP 37.1; O2SAT 98
== END 2022-12-04 18:49 | disposition home or self-care (01) ==
PROVIDERS: Emergency Provider Nurse Practitioner Family; PCP Family Medicine
DX: J01.90 Acute sinusitis, unspecified (principal); R05.9 Cough, unspecified; B34.9 Viral infection, unspecified
CPT/HCPCS: 87635; 99212; 99214; G0463

== ENCOUNTER 2023-12-07 12:06 | Emergency (ER) | payer OTHER, SELFPAY ==
--- NOTE | 2023-12-07 12:36 | ED_ITS ---
Discharge Plan Disposition Patient Disposition: Home, Self-Care Condition: Good Prescriptions Prescriptions: New doxycycline hyclate 100 mg capsule 100 mg PO Q12 10 Days Qty: 20 0RF benzonatate 100 mg capsule 100 mg PO TIDP PRN (Reason: Cough) Qty: 30 0RF methylprednisolone 4 mg Tablets,Dose Pack 4 mg PO DIRECTED 6 Days Qty: 21 0RF Rx Instructions: Take 1 pack as directed for 6 days No Action levalbuterol HCl 0.63 mg/3 mL solution for nebulization 0.63 mg INHALATION BID Qty: 90 6RF fexofenadine [Lillian Allergy] 60 mg tablet 60 mg PO DAILY benzonatate 100 mg capsule 100 mg PO BID PRN (Reason: cough) Qty: 20 0RF Hyper-Shabbir 3.5 % solution for nebulization 3 ml INHALATION DAILY MDD 3 ml 90 Days Qty: 270 3RF Rx Instructions: 3 mL of 3% hypertonic saline nebulization once every day. This nebulization should be preceded by albuterol nebulization to avoid any bronchospasm. loratadine 10 mg tablet 10 mg PO DAILY PRN (Reason: Allergy symptoms) Referrals Follow up/Referrals: Trevor Barkley MD [Primary Care Provider] - See instructions Activity Restrictions/Add. Instructions Additional Instructions/Restrictions: Drink plenty of fluids. Take tylenol or ibuprofen for pain or fever. Take the medications as directed. Follow up with your regular doctor. GO TO THE ER FOR ANY WORSENING SYMPTOMS Clinical Impressions Clinical Impression: Sinus infection Instructions Patient Instructions: Sinusitis, DI for Sinusitis Print Language Print Language: Uzbek Discharge ED Provider: Neymar Chong [facility] General Stated complaint: sore throat, stuffy nose Time Seen by Provider: 12/07/23 12:34 History of Present Illness Provider Complaint: She states that for the past 3 days she has had worsening sinus congestion, fatigue and malaise. She denies any fever/chills/body aches. Related Data Home Medications ?Medication ?Instructions ?Recorded ?Confirmed fexofenadine 60 mg tablet (Lillian 60 mg PO DAILY 02/08/23 02/08/23 Allergy) loratadine 10 mg tablet 10 mg PO DAILY PRN Allergy symptoms 02/08/23 02/08/23 Previous Rx's ?Medication ?Instructions ?Recorded levalbuterol HCl 0.63 mg/3 mL 0.63 mg (3 mL) inhalation BID #90 02/03/21 solution for nebulization mL sodium chloride 3.5 % for 3 ml inhalation DAILY 90 days #270 03/13/21 nebulization (Hyper-Shabbir) mL benzonatate 100 mg capsule 100 mg PO BID PRN cough #20 caps 02/08/23 benzonatate 100 mg capsule 100 mg PO TIDP PRN Cough #30 caps 12/07/23 doxycycline hyclate 100 mg capsule 100 mg PO Q12 10 days #20 caps 12/07/23 methylprednisolone 4 mg tablets in 4 mg PO DIRECTED 6 days #21 tabs 12/07/23 a dose pack Allergies Allergy/AdvReac Type Severity Reaction Status Date / Time amoxicillin Allergy Verified 02/08/23 13:28 cephalexin [From Keflex] Allergy Verified 02/08/23 13:28 ciprofloxacin Allergy Verified 02/08/23 13:28 erythromycin base Allergy Verified 02/08/23 13:28 Sulfa (Sulfonamide Allergy Verified 02/08/23 13:28 Antibiotics) sulfamethoxazole Allergy Verified 02/08/23 13:28 [From Bactrim] trimethoprim Allergy Verified 02/08/23 13:28 [facility] Disclaimer: The information contained in this section may have been updated after the patient was seen, as this information can be updated by other users. Social History Smoking Status: Never smoker alcohol intake: never substance use type: denies use current occupational status: other Travel in the last 8 weeks: None household members: family housing: house ROS Obtained: Yes All systems reviewed & no additional complaints except as documented Constitutional Constitutional: Reports poor appetite Eyes Eyes: Reports system reviewed and no additional complaints, except as documented ENT Ears, Nose, Mouth, and Throat: Reports as per HPI Cardiovascular Cardiovascular: Reports system reviewed and no additional complaints, except as documented and Denies chest pain Respiratory Respiratory: Denies shortness of breath, Denies chest congestion, Reports cough, Denies stridor and Denies wheezing Gastrointestinal Gastrointestingal: Reports system reviewed and no additional complaints, except as documented; Denies abdominal pain, diarrhea or vomiting Musculoskeletal Musculoskeletal: Reports system reviewed and no additional complaints, except as documented and Denies arthralgias Integumentary/Breasts Skin/Breast: Reports system reviewed and no additional complaints, except as documented and Denies rash Neurologic Neurologic: Denies paresthesias Allergic/Immunologic Allergic/Immunologic: Denies wheezing Physical Exam General General appearance: alert and in no apparent distress Eye Eye exam: Present normal appearance, PERRL and EOMI ENT ENT exam: Present mucous membranes moist and normal external ear exam Expanded ENT Exam External ear exam: Present normal external inspection TM/Canal exam: Bilateral TM: erythema and bulging Nose exam: Absent sinus tenderness Nasal speculum exam: Bilateral: normal Mouth exam: Present normal external inspection; Absent drooling Teeth exam: Present normal inspection Throat exam: Present tonsillar erythema and tonsillomegaly Neck Neck exam: Present normal inspection, full ROM and trachea midline; Absent tenderness, lymphadenopathy or thyromegaly Chest Chest inspection: Present normal inspection and symmetric chest wall rise; Absent tenderness or rash Respiratory Respiratory exam: Present normal lung sounds bilaterally; Absent respiratory distress, wheezes, stridor or accessory muscle use Cardiovascular Cardiovascular exam: Present regular rate, normal rhythm and normal heart sounds Abdominal Exam Abdominal exam: Present soft; Absent distention, tenderness, guarding, rebound or rigidity Extremities Exam Extremities exam: Present normal inspection, full ROM and normal capillary refill; Absent tenderness or calf tenderness Back Exam Back exam: Present normal inspection and full ROM; Absent tenderness Neurological Exam Neurological exam: Present alert and oriented X3 Psychiatric Psychiatric exam: Present normal affect and normal mood Skin Skin exam: Present warm, dry, intact and normal color Lymphatic Lymphatic Findings: no adenopathy Medical Decision Making Medical Records Medical records reviewed: No I reviewed the patient's medical records. Screening: Per USPSTF and CDC recommendations, given the prevalence of disease in our region, it is our hospital?s policy to screen for HIV and viral Hepatitis for all patients aged 18 and over and those with ongoing risk factors. Rodriguez Inquiry Pt receiving controlled substance: No
[2023-12-07 12:51] VITALS: BP 96/86; PULSE 77; RESP 16; TEMP 36.7; O2SAT 100
[2023-12-07 12:51] LABS: UTC Strep Screen (Rapid) Negative (Negative)
[2023-12-07 13:16] VITALS: BP 96/86; PULSE 77; RESP 16; TEMP 36.7; O2SAT 100
== END 2023-12-07 13:18 | disposition home or self-care (01) ==
PROVIDERS: Emergency Provider Nurse Practitioner Family; PCP Family Medicine
DX: J01.90 Acute sinusitis, unspecified (principal); J02.9 Acute pharyngitis, unspecified; R09.81 Nasal congestion; R53.83 Other fatigue; R53.81 Other malaise
CPT/HCPCS: 87880; 99212; 99214; G0463

== ENCOUNTER 2024-02-25 15:52 | Outpatient (CLI) | payer OTHER, SELFPAY ==
[2024-02-25 18:12] LABS: Adenovirus,PCR Not Detected (NotDetected); Bordetella Pertussis Not Detected (NotDetected); Chlamydophila Pneumoniae, PCR Not Detected (NotDetected); Coronavirus 229E Not Detected (NotDetected); Coronavirus NL63 Not Detected (NotDetected); Coronavirus OC43 Not Detected (NotDetected); Coronovirus HKU1,PCR Not Detected (NotDetected); Human Metapneumovirus Not Detected (NotDetected); Influenza A, PCR Not Detected (NotDetected); Influenza AH1, 2009 Not Detected (NotDetected); Influenza AH1, PCR Not Detected (NotDetected); Influenza AH3,PCR Not Detected (NotDetected); Influenza B, PCR Not Detected (NotDetected); Mycoplasma Pneumoniae, PCR Not Detected (NotDetected); Parainfluenza 1, PCR Not Detected (NotDetected); Parainfluenza 2, PCR Not Detected (NotDetected); Parainfluenza 3, PCR Not Detected (NotDetected); Parainfluenza 4, PCR Not Detected (NotDetected); Respiratory Syncytial Virus Not Detected (NotDetected); Rhinovirus/Enterovirus Not Detected (NotDetected)
[2024-02-26 02:08] LABS: Coronavirus 19, PCR Detected (NotDetected)
== END 2024-02-25 23:59 | disposition home or self-care (01) ==
LOC: LAB.DROPOF 02-26 11:10
PROVIDERS: PCP Student in an Organized Health Care Education/Training Program; Visit Provider Student in an Organized Health Care Education/Training Program
DX: J02.9 Acute pharyngitis, unspecified (principal); R09.81 Nasal congestion
CPT/HCPCS: 87070; 87633

== ENCOUNTER 2024-02-27 17:49 | Emergency (ER) | payer OTHER, SELFPAY ==
[2024-02-27 17:51] VITALS: BP 138/88; PULSE 81; RESP 18; TEMP 36.7; O2SAT 100; BMI 20.5
--- NOTE | 2024-02-27 17:56 | ED_ITS ---
<Statement entered by Amari Feldman MD - 02/27/24 21:31> I was consulted by the WESLY, and we discussed the complexity of the problems being addressed. I approved the treatment and management plan for this patient's care in the emergency department, thus performing a substantive portion of the medical decision making. Amari Feldman MD, LYUBOV, FACEP Discharge Plan Disposition Patient Disposition: Home, Self-Care Condition: Good Prescriptions Prescriptions: New [id number]-[id number] [Bromfed DM] 2-30-10 mg/5 mL syrup 5 ml PO Q4H PRN (Reason: sinus symptoms) Qty: 118 0RF No Action methylprednisolone 4 mg tablets,dose pack See Rx Instructions PO PER PKG DIR Qty: 21 0RF Rx Instructions: PO PER PKG DIR Paxlovid 300 mg (150 mg x 2)-100 mg tablets,dose pack See Rx Instructions PO .COMPLEX Qty: 30 0RF Rx Instructions: take TWO 150 mg tablets of nirmatrelvir with ONE 100 mg tablet of ritonavir twice daily for 5 days PO Referrals Follow up/Referrals: Provider,Referral, [Primary Care Provider] - See instructions Activity Restrictions/Add. Instructions Additional Instructions/Restrictions: Continue taking Tylenol Motrin for constitutional symptoms. I recommended taking the Paxil bid that you were prescribed. I would not recommend the steroids. Follow-up with pulmonology next week as well. I have sent Bromfed into your pharmacy to help with the other symptoms. Follow-up with your PCP for no improvement change or worsening in your signs or symptoms or return to the ER as needed. Clinical Impressions Clinical Impression: COVID-19, Paresthesia Print Language Print Language: Amharic Discharge ED Provider: Amari Feldman General Adult HPI General Chief complaint: Neuro Symptoms/Deficit Stated complaint: Poss for Covid , tingling in lips Time Seen by Provider: 02/27/24 17:56 History of Present Illness HPI narrative: Patient presents for evaluation of facial paresthesias. Patient was diagnosed with COVID on Saturday. She was prescribed Paxil bid and prednisone. She has started the prednisone but has not started the Paxlovid. Patient states this afternoon she began having tingling of her upper lip and her nose. She however has no focal neurologic deficits, has no loss of motor or sensory. She does admit that she is anxious but does not recall being particularly breathless or short of air. Patient does have a history of bronchiectasis diagnosed by bronchoscopy in 2019 but does not know what pathogens if any were found. Related Data Previous Rx's ?Medication ?Instructions ?Recorded methylprednisolone 4 mg tablets in See Rx Instructions PO PER PKG DIR 02/25/24 a dose pack #21 tabs nirmatrelvir 300 mg (150 mg See Rx Instructions PO .COMPLEX 02/26/24 x2)-ritonavir 100 mg tablet,dose #30 tabs pack (Paxlovid) [id number]-dlabmprjzpzsydc-JS 5 ml PO Q4H PRN sinus symptoms 02/27/24 2 mg-30 mg-10 mg/5 mL oral syrup #118 mL (Bromfed DM) Allergies Allergy/AdvReac Type Severity Reaction Status Date / Time amoxicillin Allergy Verified 02/25/24 15:35 cephalexin (From Keflex) Allergy Verified 02/25/24 15:35 ciprofloxacin Allergy Verified 02/25/24 15:35 erythromycin base Allergy Verified 02/25/24 15:35 Sulfa (Sulfonamide Allergy Verified 02/25/24 15:35 Antibiotics) sulfamethoxazole (From Allergy Verified 02/25/24 15:35 Bactrim) trimethoprim Allergy Verified 02/25/24 15:35 PFSH PFSH Disclaimer: The information contained in this section may have been updated after the patient was seen, as this information can be updated by other users. Social History Smoking Status: Never smoker alcohol intake: never substance use type: denies use current occupational status: other Travel in the last 8 weeks: None household members: family housing: house Have you lived/traveled outside [place] in past 30 days?: No Contact w/someone who lives/traveled outside [place] past 30 days?: No Exposure to someone with infectious disease in past 14 days?: Yes Do you have a fever (greater than 100.4 F or 38 C)?: No Have you tested positive for COVID-19: Yes Exposed to someone with COVID-19 in past 14 days?: Yes Do you have a sore throat?: Yes Do you have a cough?: Yes Do you have any weakness?: No Do you have any diarrhea?: No Are you experiencing any unusual bleeding?: No Do you have any muscle aches/pain?: No Do you have any abdominal pain?: No Are you experiencing loss of taste or smell?: No Other Medical History Have you received the Flu Vaccine for this season: No Have you received the Pneumonia Vaccine: No ROS Obtained: Yes Systems reviewed as appropriate & no additional complaints except as documented Physical Exam General General appearance: alert and in no apparent distress Respiratory Respiratory exam: Present normal lung sounds bilaterally Cardiovascular Cardiovascular exam: Present regular rate Neurological Exam Neurological exam: Present alert and oriented X3 Medical Decision Making Medical Records Medical records reviewed: Yes I reviewed the patient's medical records. Screening: Per USPSTF and CDC recommendations, given the prevalence of disease in our region, it is our hospital?s policy to screen for HIV and viral Hepatitis for all patients aged 18 and over and those with ongoing risk factors. Rodriguez Inquiry Pt receiving controlled substance: No Vital Signs: 02/27/24 17:51 02/27/24 17:59 02/27/24 18:00 Temperature 98.1 F Temperature Source Oral Pulse Rate 73 75 Pulse Rate [Right] 81 Respiratory Rate 18 Blood Pressure 138/88 133/91 H Blood Pressure [Right Arm] 138/88 Blood Pressure Mean [Right Arm] 104 Blood Pressure Source 02 Sat by Pulse Oximetry 100 99 100 Oxygen Delivery Method 02/27/24 19:14 Temperature 98.1 F Temperature Source Oral Pulse Rate 76 Pulse Rate [Right] Respiratory Rate 17 Blood Pressure 114/56 L Blood Pressure [Right Arm] Blood Pressure Mean [Right Arm] Blood Pressure Source Automatic Cuff 02 Sat by Pulse Oximetry Oxygen Delivery Method Room Air Lab Data Lab results reviewed: Yes I reviewed the patient's lab results. Lab Results 02/27/24 18:09: VBG pH 7.36, VBG pCO2 48.0, VBG pO2 31.9, VBG HCO3 26.4, VBG Total CO2 27.9 H, VBG O2 Saturation 59.1, VBG Base Excess 1.0, VBG Lactic Acid 1.5 02/27/24 18:10: WBC 6.1, RBC 4.44, Hgb 13.0, Hct 39.9, MCV 89.9, MCH 29.3, MCHC 32.6, RDW 14.1, Plt Count 237, MPV 7.2 L, Neut % (Auto) 73.3, Lymph % (Auto) 18.3, Nicholas % (Auto) 7.6, Eos % (Auto) 0.3, Baso % (Auto) 0.5, Neut # (Auto) 4.4, Lymph # (Auto) 1.1, Nicholas # (Auto) 0.5, Eos # (Auto) 0.0, Baso # (Auto) 0.0, Sodium 140, Potassium 3.2 L, Chloride 105, Carbon Dioxide 31 H, Anion Gap 7.2, BUN 14, Creatinine 0.70, Estimated Creat Clear 84, Estimated GFR 88, Est GFR ( Amer) 107, Glucose 109 H, Calcium 9.3, Magnesium 2.2 02/27/24 18:10 02/27/24 18:10 Orders (Tests/Meds): ORDERS Category Date Time Status Chest XR 2 view (NOT portable) [XR chest 2V] Stat Exams 02/27/24 18:08 Completed BMP [Basic Metabolic Panel] Stat Lab 02/27/24 18:10 Completed CBC w/Auto Diff [Complete Blood Count Auto Diff] Stat Lab 02/27/24 18:10 Completed HIV (1&2) Antibody Rapid Stat Lab 02/27/24 18:10 Received Hep C Ab with Reflex to RNA Stat Lab 02/27/24 18:10 Received Magnesium Stat Lab 02/27/24 18:10 Completed VBG [Venous Blood Gas] Stat RT 02/27/24 18:09 Completed Medical Decision Narrative: In summary patient is a 53-year-old female who presents to the emergency department for evaluation of tingling of her upper lip and nose and being COVID- positive.. Patient is hemodynamically stable with a blood pressure 138/88 heart rate 81 respiratory rate is 18 with an O2 sat of 100% on room air upon arrival, afebrile. Physical exam is remarkable for clear breath sounds without increased work of breathing or adventitious sounds, patient's cranial nerves are intact grossly to exam, patient's NIH stroke score is 0, patient satting at 100% on room air.. Differential diagnosis includes facial paresthesia versus electrolyte derangement versus adverse medication reaction etc. Initial workup will be conducted with hematologic labs plain film chest x-ray. Initial interventions were considered however deferred until workup complete. Initial workup reviewed by me shows her hematologic labs are nonactionable including normal electrolytes and magnesium, and my informal interpretation of her plain film chest x-ray does not show any acute infiltrates or COVID-pneumonia. Upon repeat evaluation patient still had minimal tingling and had diminished significantly since arrival without any intervention.. Given this patient is appropriate for discharge with instructions to consider not continuing to take the steroids, definitely taking the Paxlovid as she has a history of bronchiectasis and strict return precautions. Patient also advised to follow-up with Dr. Martínez next week. Critical Care Critical Care Time Critical Care Time: No
[2024-02-27 17:59] VITALS: BP 138/88; PULSE 73; O2SAT 99
[2024-02-27 18:00] VITALS: BP 133/91; PULSE 75; O2SAT 100
--- NOTE | 2024-02-27 18:08 | XR_ITS ---
PROCEDURE INFORMATION: Exam: XR Chest Exam date and time: 02/27/2024 6:19 PM Age: 53 years old Clinical indication: Cough; Additional info: Covid-positive, paresthesias TECHNIQUE: Imaging protocol: Radiologic exam of the chest. Views: 2 views. COMPARISON: CR XR CHEST 2V 01/04/2019 09:28 FINDINGS: Lungs: There are scattered nodular pulmonary opacities throughout the lungs without significant change since 2019. There are new right upper lobe opacities of indeterminate significance. Pleural spaces: Unremarkable. No pleural effusion. No pneumothorax. Heart/Mediastinum: Unremarkable. No cardiomegaly. Bones/joints: Unremarkable. IMPRESSION: There are new right upper lobe opacities of indeterminate significance. Atypical infection could have this appearance.
[2024-02-27 18:21] LABS: Basophils % 0.5 % (0.1-2.0); Eosinophils % 0.3 % (0.1-12.0); Hematocrit 39.9 % (37.0-47.0); Lymphocytes # 1.1 K/mm3 (0.7-4.5); Lymphocytes % 18.3 % (10-50); Mean Corpuscular HGB Conc 32.6 g/dL (31.8-35.4); Mean Corpuscular Hemoglobin 29.3 pg (27.0-31.2); Mean Corpuscular Volume 89.9 fl (81-99); Mean Platelet Volume 7.2 fl (7.4-10.4); Monocytes # 0.5 K/mm3 (0.1-1.0); Monocytes % 7.6 % (1.7-9.3); Neutrophils # 4.4 K/mm3 (1.8-7.8); Neutrophils % 73.3 % (37.0-80.0); Platelet Count 237 K/mm3 (142-424); Red Blood Count 4.44 M/mm3 (4.20-5.40); Red Cell Distribution Width 14.1 % (11.5-17.5); White Blood Count 6.1 K/mm3 (4.8-10.8)
[2024-02-27 18:25] LABS: Lactate Venous 1.5 mmol/L (0.4-2.0); VBG HCO3 26.4 mmol/L (23-30); VBG Oxygen Saturation 59.1 % (50-70); VBG PH 7.36 mmol/L (7.31-7.41); VBG PO2 31.9 mmol/L (28-40); VBG Total CO2 27.9 mmol/L (23-27)
[2024-02-27 18:30] LABS: Chloride 105 mmol/L (98-107); Potassium 3.2 mmoL/L (3.5-5.1)
[2024-02-27 18:33] LABS: Carbon Dioxide 31 mmol/L (22.0-30.0); Glucose 109 mg/dl (74-100); Magnesium 2.2 mg/dl (1.6-2.3)
[2024-02-27 18:37] LABS: Anion Gap 7.2 mEq/L (5-15); Sodium 140 mmol/L (136-145)
[2024-02-27 18:41] LABS: Blood Urea Nitrogen 14 mg/dl (7-17); Calcium 9.3 mg/dl (8.4-10.2); Creatinine Clearance Estimated 84 mL/min (50-200); Estimated Glomerular Filt Rate 88 ml/min (>60); GFR (African American) 107 ML/MIN (>60)
[2024-02-27 19:14] VITALS: BP 114/56; PULSE 76; RESP 17; TEMP 36.7; O2SAT 100
[2024-02-28 16:46] LABS: HIV Combo NEGATIVE (Negative)
[2024-02-29 06:13] LABS: HCV Ab Non Reactive (Non Reactive)
== END 2024-02-27 19:25 | disposition home or self-care (01) ==
PROVIDERS: Physician Assistant; Emergency Provider Student in an Organized Health Care Education/Training Program
DX: U07.1 COVID-19 (principal); R20.2 Paresthesia of skin
CPT/HCPCS: 71046; 80048; 82803; 83735; 85025; 86803; 87389; 99283